=== PATIENT | male | born 1970 | race Caucasian/White ===

== ENCOUNTER 2017-06-13 21:12 | Emergency (ER) | payer OTHER ==
[~2017-06-13] VITALS: Ht 180.3 cm; Wt 106.6 kg
[~2017-06-13 21:12] MED LIST: ASPIR-LOW81 MG PO; BACTRIM DS 8001 TA1 PO; BACTROBAN CREAM15 GM T; CYCLOBENZAPRINE10 MG PO; FLEXERIL5 MG PO; HYDROCODONE BIT1 T11 PO; IBU-8800 MG PO; INDOCIN25 MG PO; INDOMETHACIN MC; INDOMETHACIN25 M1 PO; K-DUR 2020 MEQ PO; K-DUR 20MEQ20 MEQ PO; K-LOR 20MEQ20 ME1 PO; KEFLEX500 M1 PO; KEFLEX500 MG PO; LOPRESSOR25 MG PO; MAGNESIUM400 M1 PO; MEDROL DOSEPAK4 MG PO; MOTRIN800 MG PO; NAPROSYN500 MG PO; NORCO 5-325 TA1 EACH PO; NORFLEX100 MG PO; OMEPRAZOLE20 M2 PO; PENICILLIN VK500 MG PO; POTASS CHL20 MEQ/15 PO; POTASSIUM CHLO20 ME3 PO; PRILOSEC40 MG PO; TORADOL10 MG PO; TRAMADOL HCL50 MG PO; VICODIN 5-3001 EACH PO; VICODIN 5/500 505 MG PO; VICODIN ES 7501 TAB PO; VICODIN1 TAB PO; VITAMIN D22000 UNIT PO; VITAMIN D50000 I2 PO; VOLTAREN50 M1 PO
[2017-06-13] MEDS ORDERED: NAPROSYN500 MG PO (21:22)
[2017-06-13] MEDS ORDERED: CLINDAMYCIN150 MG PO (21:22)
== END 2017-06-13 21:45 | disposition home or self-care (01) ==
LOC: ED 21:12
DX: K04.7 Periapical abscess without sinus (principal); K02.9 Dental caries, unspecified; E87.6 Hypokalemia; F17.200 Nicotine dependence, unspecified, uncomplicated; Z88.8 Allergy status to other drugs, medicaments and biological substances; Z79.899 Other long term (current) drug therapy

== ENCOUNTER 2018-01-27 12:28 | Emergency (ER) | payer BC, OTHER ==
[~2018-01-27] VITALS: Ht 180.3 cm; Wt 102.1 kg
[~2018-01-27 12:28] MED LIST changes: +CLINDAMYCIN150 MG PO
[2018-01-27] MEDS ORDERED: MEDROL DOSEPAK4 MG PO (14:12)
== END 2018-01-27 14:15 | disposition home or self-care (01) ==
LOC: ED 12:28
DX: T63.441A Toxic effect of venom of bees, accidental (unintentional), initial encounter (principal); R22.0 Localized swelling, mass and lump, head; Y92.89 Other specified places as the place of occurrence of the external cause

== ENCOUNTER 2018-08-24 19:27 | Emergency (ER) | payer BC, OTHER ==
[~2018-08-24] VITALS: Ht 180.3 cm; Wt 106.6 kg
[2018-08-24] MEDS ORDERED: AUGMENTIN 875875 MG PO (19:57)
== END 2018-08-24 20:02 ==
LOC: ED 19:27
DX: H66.92 Otitis media, unspecified, left ear (principal); K59.00 Constipation, unspecified; R09.81 Nasal congestion; R11.2 Nausea with vomiting, unspecified; Z88.8 Allergy status to other drugs, medicaments and biological substances; Z79.899 Other long term (current) drug therapy

== ENCOUNTER → 2019-08-27 | Outpatient (CLI) | payer BC ==
[~2019-08-27] MED LIST changes: +AUGMENTIN 875875 MG PO
[2019-08-27 11:17] LABS: BASO % 0.3 % (0.0-1.0); EOS # 0.2 10*3/uL (0.0-0.4); EOS % 1.1 % (1.0-4.0); HEMATOCRIT 43.6 % (42.0-52.0); HEMOGLOBIN 15.2 g/dl (14.0-18.0); LYMPH # 3.2 10*3/uL (1.3-4.4); LYMPH % 21.5 % (27.0-41.0); MEAN CELL VOLUME 87.7 fl (80.0-94.0); MEAN CORPUSCULAR HGB 30.6 pg (27.0-31.0); MEAN CORPUSCULAR HGB CONC 34.9 g/dl (33.0-37.0); MEAN PLATELET VOLUME 11.5 fl (9.6-12.3); MONO # 1.1 10*3/uL (0.1-1.0); MONO % 7.6 % (3.0-9.0); NEUT % 68.5 % (47.0-73.0); PLATELET COUNT AUTOMATED 326 10*3/uL (130-400); RED BLOOD COUNT 4.97 10*6/uL (4.50-5.90); RED CELL DISTRI WIDTH 13.2 % (0-14.5); RETICULOCYTE % 1.44 % (0.50-2.50); WHITE BLOOD COUNT 14.6 10*3/uL (4.8-10.8)
[2019-08-27 11:48] LABS: ALBUMIN 3.7 gm/dl (3.1-4.5); BUN 12 mg/dl (7-24); CHLORIDE 97 mmol/L (98-107); CHOLESTEROL 150 mg/dL (<200); HDL CHOLESTEROL 41 mg/dl (40-60); LDL CHOLESTEROL 94 mg/dL (9-159); POTASSIUM 3.2 mmol/L (3.5-5.1); SODIUM 137 mmol/L (136-145); TRIGLYCERIDES 75 mg/dl (<150); VLDL CHOLESTEROL 15 mg/dL (6-40)
[2019-08-27 11:59] LABS: ALKALINE PHOSPHATASE 77 U/L (45-117); CREATININE 0.86 mg/dL (0.70-1.30); GAMMA GLUTAMYL TRANSPEPTIDASE 42 U/L (15-85); IRON 25 ug/dL (65-175); SGOT/AST 16 IU/L (3-35); SGPT/ALT 36 U/L (12-78); TOTAL IRON BINDING CAPACITY 293 ug/dl (250-450)
[2019-08-27 13:47] LABS: BILIRUBIN NEGATIVE (NEGATIVE); BLOOD NEGATIVE (NEGATIVE); CLARITY CLEAR (CLEAR); COLOR YELLOW (YELLOW); GLUCOSE NEGATIVE (NEGATIVE); KETONE NEGATIVE (NEGATIVE); LEUKO ESTERASE NEGATIVE (NEGATIVE); NITRITE NEGATIVE (NEGATIVE); RBC 16-20 rbc/hpf (0-2); UROBILINOGEN 0.2 E.U./dl (0.2-1.0)
[2019-08-27 13:48] LABS: BACTERIA 1+
[2019-08-27 13:49] LABS: CALCIUM OXALATE CRYSTALS TRACE
[2019-08-27 14:32] LABS: VITAMIN D, 25-HYDROXY 11.8 ng/mL (30-100)
[2019-08-27 14:33] LABS: FERRITIN 325.1 ng/mL (22.0-322.0)
== END | disposition home or self-care (01) ==
LOC: LAB 10:49
PROVIDERS: Family Medicine
DX: R79.89 Other specified abnormal findings of blood chemistry (principal); R53.83 Other fatigue; E78.5 Hyperlipidemia, unspecified; R74.8 Abnormal levels of other serum enzymes; E55.9 Vitamin D deficiency, unspecified

== ENCOUNTER → 2020-03-15 | Outpatient (CLI) | payer BC ==
[2020-03-15 10:08] LABS: BASO # 0.1 10*3/uL (0.0-0.1); BASO % 0.5 % (0.0-1.0); EOS # 0.3 10*3/uL (0.0-0.4); EOS % 3.1 % (1.0-4.0); HEMATOCRIT 39.4 % (42.0-52.0); LYMPH # 2.9 10*3/uL (1.3-4.4); LYMPH % 26.5 % (27.0-41.0); MEAN CELL VOLUME 85.3 fl (80.0-94.0); MEAN CORPUSCULAR HGB 30.1 pg (27.0-31.0); MEAN CORPUSCULAR HGB CONC 35.3 g/dl (33.0-37.0); MONO # 0.8 10*3/uL (0.1-1.0); MONO % 6.9 % (3.0-9.0); NEUT # 6.8 10*3/uL (2.3-7.9); NEUT % 61.7 % (47.0-73.0); PLATELET COUNT AUTOMATED 344 10*3/uL (130-400); RED BLOOD COUNT 4.62 10*6/uL (4.50-5.90); RED CELL DISTRI WIDTH 13.9 % (0-14.5); RETICULOCYTE % 1.71 % (0.50-2.50); WHITE BLOOD COUNT 11.1 10*3/uL (4.8-10.8)
[2020-03-15 10:37] LABS: ALBUMIN 3.1 gm/dl (3.1-4.5); ALKALINE PHOSPHATASE 293 U/L (45-117); BUN 13 mg/dl (7-24); CHLORIDE 100 mmol/L (98-107); CHOLESTEROL 225 mg/dL (<200); CREATININE 0.89 mg/dL (0.70-1.30); HDL CHOLESTEROL 26 mg/dl (40-60); IRON 120 ug/dL (65-175); LDL CHOLESTEROL 165 mg/dL (9-159); POTASSIUM 2.8 mmol/L (3.5-5.1); SGOT/AST 58 IU/L (3-35); SGPT/ALT 226 U/L (12-78); SODIUM 134 mmol/L (136-145); TOTAL IRON BINDING CAPACITY 283 ug/dl (250-450); TOTAL PROTEIN 7.5 gm/dL (6.4-8.2); TRIGLYCERIDES 169 mg/dl (<150); URIC ACID 5.6 mg/dL (3.5-7.2); VLDL CHOLESTEROL 34 mg/dL (6-40)
[2020-03-15 10:44] LABS: GAMMA GLUTAMYL TRANSPEPTIDASE 1412 U/L (15-85)
[2020-03-15 10:45] LABS: FERRITIN 731.6 ng/mL (22.0-322.0); VITAMIN D, 25-HYDROXY 11.4 ng/mL (30-100)
[2020-03-15 10:48] LABS: BILIRUBIN Negative; BLOOD Negative (NEGATIVE); CLARITY Clear (CLEAR); COLOR Dark Yellow (YELLOW); GLUCOSE Negative; KETONE Negative; SPECIFIC GRAVITY 1.015 (1.001-1.030)
[2020-03-15 10:49] LABS: LEUKO ESTERASE Negative (NEGATIVE); NITRITE Negative (NEGATIVE)
[2020-03-16 13:08] LABS: RHEUMATOID ARTHRITIS FACTOR <10.0 IU/mL (0.0-13.9)
[2020-03-16 15:06] LABS: ANTI-DSDNA ANTIBODIES <1 IU/mL (0-9)
== END | disposition home or self-care (01) ==
LOC: LAB 09:21
PROVIDERS: ATTEND Family Medicine
DX: E55.9 Vitamin D deficiency, unspecified (principal); E78.5 Hyperlipidemia, unspecified; R79.89 Other specified abnormal findings of blood chemistry; R53.83 Other fatigue

== ENCOUNTER → 2020-03-30 | Outpatient (CLI) | payer BC ==
[2020-03-30 12:01] LABS: INTERNATIONAL NORM RATIO 0.9 (2.0-3.5)
[2020-03-30 12:31] LABS: ALBUMIN 3.3 gm/dl (3.1-4.5); CHLORIDE 100 mmol/L (98-107); IRON 99 ug/dL (65-175); POTASSIUM 2.8 mmol/L (3.5-5.1); SGOT/AST 61 IU/L (3-35); SGPT/ALT 169 U/L (12-78); SODIUM 139 mmol/L (136-145)
[2020-03-30 12:45] LABS: ALKALINE PHOSPHATASE 362 U/L (45-117); BUN 8 mg/dl (7-24); TOTAL IRON BINDING CAPACITY 311 ug/dl (250-450)
[2020-03-30 12:52] LABS: GAMMA GLUTAMYL TRANSPEPTIDASE 1662 U/L (15-85)
[2020-03-31 09:07] LABS: HEP B CORE AB, IGM Negative (Negative); HEPATITIS B SURFACE AB Non Reactive (.); HEPATITIS B SURFACE AG Negative (Negative)
[2020-03-31 12:07] LABS: ALPHA-1-ANTITRYPSIN, SERUM 257 mg/dL (101-187); t-TRANSGLUTAMINASE (tTG) IGA <2 U/mL (0-3); t-TRANSGLUTAMINASE (tTG) IgG <2 U/mL (0-5)
[2020-03-31 14:11] LABS: ANTI-SMOOTH MUSCLE ANTIBODY 4 Units (0-19)
== END | disposition home or self-care (01) ==
LOC: LAB 11:15
PROVIDERS: Internal Medicine Gastroenterology; ATTEND Nurse Practitioner Family
DX: R79.89 Other specified abnormal findings of blood chemistry (principal)

== ENCOUNTER → 2020-06-15 | Outpatient (CLI) | payer BC ==
[2020-06-15 13:30] LABS: BASO # 0.1 10*3/uL (0.0-0.1); BASO % 0.4 % (0.0-1.0); EOS # 0.2 10*3/uL (0.0-0.4); EOS % 1.4 % (1.0-4.0); HEMATOCRIT 38.1 % (42.0-52.0); LYMPH # 2.1 10*3/uL (1.3-4.4); LYMPH % 16.8 % (27.0-41.0); MEAN CELL VOLUME 84.7 fl (80.0-94.0); MEAN CORPUSCULAR HGB 29.3 pg (27.0-31.0); MEAN CORPUSCULAR HGB CONC 34.6 g/dl (33.0-37.0); MEAN PLATELET VOLUME 10.7 fl (9.6-12.3); MONO # 0.7 10*3/uL (0.1-1.0); MONO % 5.7 % (3.0-9.0); NEUT # 9.4 10*3/uL (2.3-7.9); NEUT % 75.1 % (47.0-73.0); PLATELET COUNT AUTOMATED 423 10*3/uL (130-400); RED CELL DISTRI WIDTH 14.4 % (0-14.5); RETICULOCYTE % 1.53 % (0.50-2.50); WHITE BLOOD COUNT 12.6 10*3/uL (4.8-10.8)
[2020-06-15 13:37] LABS: BACTERIA TRACE; BILIRUBIN Negative (Negative); BLOOD Negative (Negative); CLARITY Clear (Clear); COLOR Yellow (Yellow); EPITHELIAL CELLS 0-2; GLUCOSE Negative (Negative); KETONE Negative (Negative); LEUKO ESTERASE Negative (Negative); NITRITE Negative (Negative); PH 7.5 (4.5-8.0); RBC 0-2 rbc/hpf (0-2); SPECIFIC GRAVITY 1.015 (1.001-1.030); UROBILINOGEN 0.2 E.U./dl (0.0-1.0)
[2020-06-15 13:50] LABS: ALBUMIN 3.1 gm/dl (3.1-4.5); ALKALINE PHOSPHATASE 90 U/L (45-117); BUN 8 mg/dl (7-24); CHLORIDE 99 mmol/L (98-107); CHOLESTEROL 138 mg/dL (<200); CREATININE 0.81 mg/dL (0.70-1.30); GAMMA GLUTAMYL TRANSPEPTIDASE 94 U/L (15-85); HDL CHOLESTEROL 38 mg/dl (40-60); IRON 41 ug/dL (65-175); LDL CHOLESTEROL 62 mg/dL (9-159); LIPASE 366 U/L (73-393); POTASSIUM 2.7 mmol/L (3.5-5.1); SGOT/AST 11 IU/L (3-35); SGPT/ALT 19 U/L (12-78); SODIUM 139 mmol/L (136-145); TRIGLYCERIDES 192 mg/dl (<150); VLDL CHOLESTEROL 38 mg/dL (6-40)
[2020-06-15 13:59] LABS: TOTAL IRON BINDING CAPACITY 266 ug/dl (250-450); TOTAL PROTEIN 7.2 gm/dL (6.4-8.2)
[2020-06-15 16:18] LABS: FERRITIN 627.7 ng/mL (22.0-322.0); VITAMIN D, 25-HYDROXY 8.1 ng/mL (30-100)
== END | disposition home or self-care (01) ==
LOC: LAB 13:05
PROVIDERS: ATTEND Family Medicine
DX: E55.9 Vitamin D deficiency, unspecified (principal); R79.89 Other specified abnormal findings of blood chemistry; R53.83 Other fatigue

== ENCOUNTER → 2020-07-01 | Outpatient (CLI) | payer BC | END | disposition home or self-care (01) | LOC: COVID19 09:03 | PROVIDERS: ATTEND Family Medicine | DX: Z20.822 Contact with and (suspected) exposure to COVID-19 (principal) ==